=== PATIENT | male | born 2000 | race Two or more races ===

== ENCOUNTER 2020-07-10 17:39 | Emergency (ER) | payer SELFPAY ==
[2020-07-10 17:49] VITALS: BP 118/73
--- NOTE | 2020-07-10 18:12 | RADIOLOGY REPORT (SQ) ---
EXAM DESCRIPTION: FOOT LEFT COMPLETE IMAGES COMPLETED DATE/TIME: 07/10/2020 6:01 pm REASON FOR STUDY: marine PW COMPARISON: None. EXAM PARAMETERS: NUMBER OF VIEWS: Three views. TECHNIQUE: AP, lateral and oblique radiographic images acquired of the left foot. LIMITATIONS: None. FINDINGS: MINERALIZATION: Normal. BONES: No acute fracture or dislocation. No worrisome bone lesions. JOINTS: No effusion. SOFT TISSUES: No significant soft tissue swelling. No radiopaque foreign body. OTHER: No other significant finding. IMPRESSION: NO FRACTURE. TECHNICAL DOCUMENTATION: JOB ID: [id number] 2010 [employer]- All Rights Reserved Reading location - IP/workstation name: [email or web address]
[2020-07-10] MEDS ORDERED: DOXYCYCLINE HYCLATE 100 MG TABLET PO ONE (18:16)
[2020-07-10] MEDS ORDERED: HYDROCODONE/ACETAMINOPHEN 5-325 MG TABLET PO ONE (18:16)
--- NOTE | 2020-07-10 18:22 | ER Document Report ---
HPI - HPI Patient complains to provider of: Puncture wound Time Seen by Provider: 07/10/20 17:46 Onset: Just prior to arrival Onset/Duration: Sudden Quality of pain: Burning Pain Level: 5 Context: [place] sting to the left foot. Patient with puncture wound that is bleeding to the medial aspect of the left foot. Patient's tetanus immunizations currently up-to-date. Associated Symptoms: Other - Left foot pain. denies: Fever, Nausea, Vomiting Exacerbated by: Movement Relieved by: Other - Hot water immersion Similar symptoms previously: No Recently seen / treated by doctor: No - ROS ROS below otherwise negative: Yes Systems Reviewed and Negative: Yes All other systems reviewed and negative - CONSTITUTIONAL Constitutional: DENIES: Fever - NEURO Neurology: DENIES: Weakness - GASTROINTESTINAL Gastrointestinal: DENIES: Nausea - MUSCULOSKELETAL Musculoskeletal: REPORTS: Extremity pain. DENIES: Swelling - DERM Skin Problems: Laceration, Puncture Wound Past Medical History - General Information source: Patient, Relative - Social History Smoking Status: Current Every Day Smoker Chew tobacco use (# tins/day): No Frequency of alcohol use: None Drug Abuse: None Lives with: Family Family History: Reviewed & Not Pertinent Patient has homicidal ideation: No - Medical History Medical History: Negative Past Surgical History: Reports: Hx Herniorrhaphy - Immunizations Hx Diphtheria, Pertussis, Tetanus Vaccination: Yes Vertical Provider Document - CONSTITUTIONAL Agree With Documented VS: Yes Exam Limitations: No Limitations General Appearance: WD/WN, No Apparent Distress - HEENT HEENT: Atraumatic, Normocephalic - RESPIRATORY Respiratory: No Respiratory Distress - CARDIOVASCULAR Pulses: Normal: Dorsalis pedis - MUSCULOSKELETAL/EXTREMETIES Musculoskeletal/Extremeties: MAEW, Tender - Left foot tenderness, No Edema - NEURO Level of Consciousness: Awake, Alert, Appropriate Motor/Sensory: No Motor Deficit - DERM Integumentary: Warm, Dry, Laceration - 0.5 cm puncture wound/laceration Course - Re-evaluation Re-evalutation: 07/10/20 18:25 Offered patient [employer] office manager services, patient preferred to have family member translate. X-ray reviewed, no radiopaque retained foreign body. Suspect likely stingray puncture wound envenomation given symptom relief after immersion in hot water and appearance of patient's injury. Will cover with doxycycline empirically, discussed worsening signs or symptoms of patient should return immediately for. - Vital Signs Vital signs: Temp Pulse Resp BP Pulse Ox 98.7 F 109 H 20 118/73 98 07/10/20 17:45 07/10/20 17:45 07/10/20 17:45 07/10/20 17:45 07/10/20 17:45 - Diagnostic Test Radiology reviewed: Image reviewed, Reports reviewed Discharge - Discharge Clinical Impression: Puncture wound Marine animal sting Qualifiers: Encounter type: initial encounter Injury intent: undetermined intent Qualified Code(s): T63.694A - Toxic effect of contact with other venomous marine animals, undetermined, initial encounter Condition: Stable Disposition: HOME, SELF-CARE Instructions: Marine Puncture Envenomation ([facility]), Prophylactic Antibiotic ([facility]) Additional Instructions: Return immediately for any new or worsening symptoms: Increased redness, fever, purulent drainage, worsening pain or any concerning new symptoms Followup with your primary care provider, call tomorrow to make a followup appointment Prescriptions: Hydrocodone/Acetaminophen [[place] 5-325 mg Tablet] 1 tab PO Q6 PRN #15 tablet PRN Reason: Doxycycline Hyclate [Vibramycin] 100 mg PO BID #20 capsule Referrals: [facility] [Provider Group] - Follow up as needed
== END 2020-07-10 18:23 | disposition home or self-care (01) ==
LOC: ER 17:39
DX: T63.91XA Toxic effect of contact with unspecified venomous animal, accidental (unintentional), initial encounter (principal); S91.332A Puncture wound without foreign body, left foot, initial encounter; Y92.832 Beach as the place of occurrence of the external cause; F17.200 Nicotine dependence, unspecified, uncomplicated
CPT/HCPCS: 99284